=== PATIENT | female | born 2005 ===

== ENCOUNTER 2025-02-17 08:58 | Outpatient (REF) | payer OTHER, SELFPAY ==
--- NOTE | ~2025-02-17 | US_ITS ---
EXAMINATION: US PELVIS HISTORY: amenorrhea COMPARISON: There are no prior studies available for comparison. TECHNIQUE: Transabdominal real-time 2D flynn-scale ultrasound was performed. The patient declined endovaginal examination. FINDINGS: Uterus: The uterus is normal in size, measuring 6.3 x 2.4 x 4.4 cm. Myometrium has a normal echotexture. No fibroids are identified. Endometrium: The endometrial stripe measures 3 mm in thickness. Right ovary: The right ovary measures 3.1 x 1.8 x 2.7 cm. The right ovary is normal in size and echotexture. Left ovary: The left ovary measures 3.2 x 1.7 x 2.8 cm. The left ovary is normal in size and echotexture. Pelvic fluid: none. US/US pelvic complete IMPRESSION: Unremarkable pelvic ultrasound. Electronically signed by: Cheo Peterson MD 02/17/2025 01:20 PM EDT
== END 2025-02-17 08:59 | disposition home or self-care (01) ==
LOC: HO.UMASIMG 08:58
PROVIDERS: Visit Provider Nurse Practitioner Women's Health
DX: N92.6 Irregular menstruation, unspecified (principal)
CPT/HCPCS: 76856